=== PATIENT | female | born 2000 | race African-American/Black ===

== ENCOUNTER 2021-05-24 10:56 | Emergency (ER) | payer MEDICAID, SELFPAY ==
[2021-05-24 11:07] VITALS: BP 112/63; PULSE 60; RESP 16; TEMP 36.8; O2SAT 100
--- NOTE | 2021-05-24 11:16 | ED.DENTAL ---
HPI - Dental/Oral General Chief complaint: Dental/Oral Stated complaint: Tooth pain Time Seen by Provider: 05/24/21 11:08 Source: patient and RN notes reviewed Mode of arrival: ambulatory Limitations: no limitations History of Present Illness HPI Narrative: Patient presents today complaining of left lower tooth pain x1 week with swelling to the left lower jawline x2 days. Denies fever, shortness of breath, difficulty swallowing. Currently rates her pain 6/10 and has taken no medication for symptoms prior to arrival. Patient does have an appointment in 3 days at a dentist for further evaluation. MD Complaint: tooth pain Related Data Allergies Allergy/AdvReac Type Severity Reaction Status Date / Time No Known Allergies Allergy Verified 05/24/21 11:09 Review of Systems Review of Systems: CONSTITUTIONAL: Denies body aches, fever, chills, or sweats. EYES: Denies visual changes, redness, or discharge. ENT: Denies rhinorrhea, congestion, sore throat, or otalgia.+ Tooth pain and facial swelling CARDIOVASCULAR: Denies chest pain, palpitations, or edema. RESPIRATORY: Denies cough or dyspnea. GASTROINTESTINAL: Denies abdominal pain, nausea, vomiting, or diarrhea. GENITOURINARY: Denies dysuria or hematuria. SKIN: Denies rash, itching, or wounds. MUSCULOSKELETAL: Denies back pain, joint pain, or myalgia. NEUROLOGIC: Denies headache, numbness, tingling, or weakness. PSYCH: Denies depression or anxiety. [facility] Social History Social History (Updated 05/24/21 @ 11:21 by Loretta Baker, [facility], ) Substance use: current Substance use type: marijuana Comments At time of signature, I have reviewed and agree with nursing past medical, surgical, social and family history unless otherwise noted. Please see nursing chart for further information. There is no relevant family history pertinent to the presenting complaint Exam Narrative: GENERAL: Well-appearing, well-nourished, and in no acute distress. HEAD: Normocephalic, atraumatic. EYES: EOMI. No redness or drainage. Conjunctivae normal. ENT: Mucous membranes pink and moist. Tenderness to tooth #19. No obvious dental carry. No obvious periapical abscess. Swelling to the lower jawline with tenderness. No trismus. NECK: Normal AROM. Supple. Left anterior cervical chain lymphadenopathy. CHEST: No respiratory distress. EXTREMITIES: Normal range of motion. No edema. SKIN: Warm, dry, no rash. Capillary refill normal. Normal skin turgor. NEURO: No focal deficits. Alert and oriented x3. Gait steady. PSYCH: Normal affect. No signs of depression or anxiety. Course Course Level of Care: Express Care Visit Vital Signs Vital signs: Vital Signs Temperature 98.3 F 05/24/21 11:07 Pulse Rate 60 05/24/21 11:07 Respiratory Rate 16 05/24/21 11:07 Blood Pressure 112/63 05/24/21 11:07 Pulse Oximetry 100 05/24/21 11:07 Temperature 98.3 F 05/24/21 11:07 Pulse Rate 60 05/24/21 11:07 Respiratory Rate 16 05/24/21 11:07 Blood Pressure 112/63 05/24/21 11:07 Pulse Oximetry 100 05/24/21 11:07 Reviewed MDM - Dental/Oral Differential Diagnosis Differential diagnosis: Likely gingival abscess, dental caries, toothache, dental abscess and fracture of tooth Critical Care Time Critical Care Time Critical Care Time: No Discharge Plan Discharge Clinical Impression: Dental abscess Patient Disposition: Home, Self-Care Condition: Stable Instructions: Antibiotic Form, Dental Abscess (ED) Additional Instructions: Take the amoxicillin as prescribed until gone. Start anti-inflammatories such as Aleve or ibuprofen for pain and swelling. Follow-up with the dentist as scheduled on Thursday. Patient Language: Congolese Prescriptions: New amoxicillin 875 mg tablet 875 mg PO Q12H 10 Days Qty: 20 RF: 0 Follow-up/Referrals: PHYSICIAN,CREDIT UNDERWRITER [Primary Care Provider] - Time of Disposition:
== END 2021-05-24 11:29 | disposition home or self-care (01) ==
PROVIDERS: Emergency Provider Nurse Practitioner
DX: K04.7 Periapical abscess without sinus (principal); J45.909 Unspecified asthma, uncomplicated; F12.90 Cannabis use, unspecified, uncomplicated
CPT/HCPCS: 99213; G0463